=== PATIENT | male | born 1990 | race Two or more races ===

== ENCOUNTER 2021-11-29 18:31 | Emergency (ER) | payer SELFPAY ==
[~2021-11-29] VITALS: Ht 185.4 cm; Wt 136.1 kg
[2021-11-29 19:31] VITALS: BP 132/72
== END 2021-11-29 20:17 | disposition home or self-care (01) ==
LOC: ER 18:31
DX: M54.2 Cervicalgia (principal); M25.562 Pain in left knee; V49.69XA Unspecified car occupant injured in collision with other motor vehicles in traffic accident, initial encounter; Y93.89 Activity, other specified; Y92.410 Unspecified street and highway as the place of occurrence of the external cause; Y99.8 Other external cause status
CPT/HCPCS: 72040; 73562